=== PATIENT | female | born 1945 | race Caucasian/White ===

== ENCOUNTER 2017-03-31 17:06 | Emergency (ER) | payer MEDICARE, OTHER ==
[2017-03-31 18:07] LABS: Anion Gap 14 mmol/L (10-20); BUN (Urea Nitrogen) 14 mg/dL (9.8-20.1); Calc. Creatinine Clearance 0 mL/min (70-130); Calcium 9.8 mg/dL (7.8-10.44); Carbon Dioxide 26 mmol/L (23-31); Chloride 106 mmol/L (98-107); Estimated GFR-MDRD 71; Glucose 89 mg/dL (83-110); Potassium 3.6 mmol/L (3.5-5.1); Sodium 142 mmol/L (136-145)
[2017-03-31] MEDS ORDERED: Ketorolac Tromethamine 30 MG/ML VIAL ONE ×2 (18:21→21:52)
[2017-03-31] MEDS ORDERED: Adacel (T-DAP) 0.5 ML VIAL ONE (18:26)
[2017-03-31 19:55] LABS: #Eosinphils 0.1 thou/uL (0.0-0.7); #Lymphocytes 1.3 thou/uL (1.20-3.40); #Monocytes 0.4 thou/uL (0.11-0.59); #Neutrophils 9.4 thou/uL (1.40-6.50); %Basophils 0.3 % (0.0-1.0); %Eosinophils 0.7 % (0.0-10.0); %Lymphocytes 11.8 % (21.0-51.0); %Monocytes 3.7 % (0.0-10.0); %Neutrophils 83.4 % (42.0-75.0); Hemoglobin 15.1 g/dL (12.0-16.0); Mean Corpuscular HGB CONC 34.1 g/dL (32.0-36.0); Mean Corpuscular Hemoglobin 31.5 pg (27.0-31.0); Mean Corpuscular Volume 92.4 fl (81.0-99.0); Mean Platelet Volume 6.9 fL (7.4-10.4); Platelet Count 197 thou/uL (130-400); RBC Distribution Width 12.4 % (11.5-14.5); White Blood Cell (WBC) Count 11.2 thou/uL (4.8-10.8)
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
--- NOTE | 2017-04-01 07:06 | RAD ---
LEFT SHOULDER 3 VIEWS: Date: 03/31/17 No fracture or dislocation seen. The bony structures of the shoulder appear intact. The AC joint is n ormal in width. The fracture of the left 8th rib posteriorly is noted on this study, as well as the s uggestion of a 7th rib fracture. IMPRESSION: 1. No acute shoulder fracture. 2. Left rib fractures as noted. POS: [facility]
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
== END 2017-03-31 22:04 | disposition home or self-care (01) ==
LOC: BURERS 17:06
DX: S32.302A Unspecified fracture of left ilium, initial encounter for closed fracture (principal); S32.402A Unspecified fracture of left acetabulum, initial encounter for closed fracture; S32.592A Other specified fracture of left pubis, initial encounter for closed fracture; S22.42XA Multiple fractures of ribs, left side, initial encounter for closed fracture; M19.90 Unspecified osteoarthritis, unspecified site; V43.52XA Car driver injured in collision with other type car in traffic accident, initial encounter
CPT/HCPCS: 51702; 71260; 72125; 72128; 72131; 72192; 74177; 80048; 85025; 90471; 90715; 96361; 96374; 96376; G0390; J1885